=== PATIENT | female | born 1960 | race African-American/Black ===

== ENCOUNTER 2018-02-16 10:49 | Emergency (ER) | payer OTHER ==
[~2018-02-16] VITALS: Ht 162.6 cm; Wt 83.5 kg
--- NOTE | 2018-02-16 14:04 | CT SCAN REPORT ---
EXAMINATION: CT HEAD WITHOUT CONTRAST CLINICAL INFORMATION: Headache. Assess for intracranial hemorrhage or mass. COMPARISON: None. TECHNIQUE: Contiguous axial imaging was performed from the skull base to vertex without intravenous administration of contrast. DLP: 622.71 mGy-cm FINDINGS: There is no evidence of acute intracranial hemorrhage or territorial infarction. No abnormal mass effect or midline shift is seen. Zelaya to white matter differentiation is well preserved. No extra-axial fluid collections are identified. The ventricles are normal in size. There is no abnormal attenuation within the brain parenchyma. The osseous structures and soft tissues are normal. The visualized mastoid air cells and paranasal sinuses are well aerated. IMPRESSION: 1. There are no acute bleeds or infarcts. No masses are demonstrated. 2. The visualized paranasal sinuses and mastoid air cells are well-aerated.
[2018-02-16] MEDS ORDERED: LINZESS290 MC1 PO (14:30)
[2018-02-16] MEDS ORDERED: PREDNISONE20 M1 PO (14:30)
[2018-02-16] MEDS ORDERED: LEVOTHYROXINE137 MCG PO (14:31)
[2018-02-16] MEDS ORDERED: BUPROPION XL300 M1 PO (14:31)
[2018-02-16] MEDS ORDERED: GABAPENTIN300 M2 PO (14:32)
[2018-02-16] MEDS ORDERED: TIZANIDINE HCL4 M1 PO (14:32)
[2018-02-16] MEDS ORDERED: TOPIRAMATE100 M2 PO (14:32)
--- NOTE | 2018-02-16 16:12 | ED HEADACHE COMPLAINT ---
History of Present Illness General Chief Complaint: Headache Stated Complaint: HX OF MIGRANES/BEASLEY Source: patient Exam Limitations: no limitations Vital Signs & Intake/Output Vital Signs & Intake/Output ED Intake and Output 02/17 0000 02/16 1200 Intake Total Output Total Balance Patient 184 lb Weight Weight Reported by Patient Measurement Method Allergies Coded Allergies: Penicillins (Intermediate, HIVES 02/16/18) hazelnut (Intermediate, HEADACHES 02/16/18) pineapple (Intermediate, HIVES 02/16/18) Reconcile Medications Bupropion HCl (Bupropion XL) 300 MG TAB.ER.24H 1 TAB PO QAM MENTAL HEALTH ( Reported) Gabapentin 300 MG CAPSULE 1 CAP PO TID UNKNOWN (Reported) Levothyroxine Sodium 137 MCG TABLET 1 TAB PO DAILY AC THYROID (Reported) Linaclotide (Linzess) 290 MCG CAPSULE 1 CAP PO DAILY GI (Reported) Prednisone 20 MG TABLET 1 TAB PO BID PRN STEROID (Reported) Tizanidine HCl 4 MG TABLET 1 TAB PO BID MUSCLE (Reported) Topiramate 100 MG TABLET 1 TAB PO BID MENTAL HEALTH (Reported) Triage Note: PT TO ED WITH C/O MIGRAINE HEADACHE, HX OF MIGRAINES, ON TOPOMAX, GETS BOTOX SHOTS AND PREDNISONE FOR MIGRAINES. HELENE POMPA IN TO EVAL IN TRIAGE. Triage Nurses Notes Reviewed? yes Onset: Gradual Duration: week(s): (2), changing over time, continues in ED Timing: recent history Quality/Severity: pressure Severity Numbers: 7 Head Injury Location: frontal No Modifying Factors: none LMP (ages 10-50): post menopausal, unknown HPI: Pt is a 56 y/o F PMHx migraine headaches, hypothyroidism presenting with a headache x 2-3 weeks. Pt states it has waxed and waned but today it is at its worst. Pain is located behind her eyes and at the frontal aspect. Pt admits to photo/phonophobia and nausea. Pt takes topomax, gabapentin BID and is curently taking 20 mg of prednisone QD. Pt also attempted sumatriptan x3 last week without relief. She has previously been treated with Botox. Her neurologist called and is requesting a CTA to rule out aneurysm. Pt denies vomiting, weakness, dizziness, vision changes. Patient reports that she has had similar headaches in the past that have required ER visits. She states that she gets headaches like this about twice a year. This is not the worse headache of her life there is no head trauma fever or neck stiffness changes in vision or focal weakness slurred speech or any other symptoms. (Stuart Almonte) Past History Travel History Traveled to [place] past 21 day No Medical History Any Pertinent Medical History? 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 No (Stuart Almonte) Review of Systems Review of Systems Constitutional: Denies: see HPI. Eyes: Reports: see HPI. Ears, Nose, Throat, Mouth: Reports: no symptoms. Respiratory: Denies: see HPI. Cardiovascular: Denies: see HPI. Gastrointestinal/Abdominal: Reports: no symptoms. Genitourinary: Reports: no symptoms. Musculoskeletal: Reports: no symptoms. Skin: Reports: no symptoms. Neurological/Psychological: Reports: see HPI. Hematologic/Endocrine: Reports: no symptoms. Endocrine: Reports: no symptoms. Immunologic/Allergic: Reports: no symptoms. All Other Systems: Reviewed and Negative (Stuart Almonte) Physical Exam Physical Exam General Appearance: well developed/nourished, no apparent distress, alert, awake , moderate distress Head: atraumatic, normal appearance Eyes: Bilateral: normal appearance, PERRL, EOMI. Ears, Nose, Throat: normal pharynx, normal ENT inspection, hearing grossly normal Neck: normal inspection, supple, full range of motion Respiratory: normal breath sounds, chest non-tender, no respiratory distress, lungs clear Cardiovascular: regular rate/rhythm Gastrointestinal: normal bowel sounds, soft, non-tender, no organomegaly Back: normal inspection, normal range of motion Extremities: normal inspection, normal range of motion, no edema Psychiatric: awake, alert, oriented x 3 Cranial Nerves: normal hearing, normal speech, PERRL, CN II-XII intact Coordination/Gait: normal finger to nose, normal gait Motor/Sensory: no motor/sensory deficits Skin: intact, normal color, warm/dry Core Measures Sepsis Present: No Sepsis Focused Exam Completed? Yes (Stuart Almonte) Progress Differential Diagnosis: carotid dissection, cluster BEASLEY, IC mass/tumor, intracranial Hem., migraine BEASLEY, musculoskeletal pain, sinusitis, SSS thrombosis, subarach. Hem., tension BEASLEY, temporal arteritis, TMJ syndrome, viral cephalgia Plan of Care: Orders Procedure Date/time Status COMPREHENSIVE METABOLIC PANEL 02/16 1526 Complete CBC WITHOUT DIFFERENTIAL 02/16 1526 Complete Laboratory Tests 02/16/18 1655: Anion Gap 6, Estimated GFR 51 L, BUN/Creatinine Ratio 10.0, Glucose 103 H, Calcium 9.3, Total Bilirubin 0.2, AST 13 L, ALT 28, Alkaline Phosphatase 50, Total Protein 6.4, Albumin 3.6, Globulin 2.8, Albumin/Globulin Ratio 1.3, CBC w Diff NO MAN DIFF REQ, RBC 4.01 L, MCV 91.9, MCH 30.3, MCHC 32.9 L, RDW 15.0 H , MPV 8.0, Gran % 73.0, Lymphocytes % 22.3, Monocytes % 4.1, Eosinophils % 0.2, Basophils % 0.4, Absolute Granulocytes 5.2, Absolute Lymphocytes 1.6, Absolute Monocytes 0.3, Absolute Eosinophils 0, Absolute Basophils 0 Patient is here for evaluation of a headache. She does have a previous history of headaches and has been treated with multiple medications including Botox. She is on prophylaxis meds and is followed by neurology. This headache is similar to previous severe headaches that have required ER visits in the past. This is not the worst headache of her life onset has been gradual. She is neurologically intact. Patient is medicated with IV fluids IV Tylenol Reglan and Benadryl. Spoke with the patient's neurologist is requesting a CTA. Labs CTA ordered. Patient is feeling much better after medications. Her blood work overall is unremarkable. Head CT and CTA are negative. Patient did not want to wait for her paperwork and left the emergency department. She was aware of the negative results she is feeling better alert and oriented 3 steady gait. Diagnostic Imaging: Viewed by Me: CT Scan. Discussed w/RAD: CT Scan. Radiology Impression: PATIENT: TOMASZ SEN PRESENT AGE: 58 PATIENT ACCOUNT NO: [id number] : 62 LOCATION: [facility] ORDERING PHYSICIAN: Stuart POMPA SERVICE DATE: 02/16/18-1528 EXAM TYPE: CAT - CT HEAD ANGIOGRAM; CT NECK ANGIOGRAM EXAMINATION: CT ANGIOGRAM NECK WITH CONTRAST CT ANGIOGRAM BRAIN WITH CONTRAST CLINICAL INFORMATION: Headaches for 2 to 3 weeks. Aneurysm. COMPARISON: Head CT performed earlier the same day. TECHNIQUE: Test bolus sequences followed by intravenous administration 95 mL of Optiray 320. Helical imaging was performed in the axial plane from the thoracic inlet to the skull vertex. Delayed postcontrast imaging of the head was also performed. The data was processed at the ultrasound technologist workstation for generation of MIP sequences. Angled MIPs and volume rendered reformatted images were also generated at an offline 3D workstation. Stenoses are assessed in accordance with NASCET criteria unless otherwise indicated. DLP: 1874 mGy-cm FINDINGS: Postcontrast head CT: There is no intracranial hemorrhage, large acute infarction, or mass lesion. The ventricles are normal in size and configuration without evidence of hydrocephalus. The major dural venous sinuses appear normal. The visualized paranasal sinuses and mastoid air cells are clear. Neck CTA: There is a three-vessel, left-sided aortic arch. There is no significant stenosis of the great vessel origins. The bilateral common carotid arteries appear normal. The bilateral internal carotid arteries appear normal without significant stenosis. The vertebral artery origins and cervical segments appear normal without significant stenosis. Head CTA: No intracranial aneurysm is seen. The intracranial internal carotid arteries appear normal. The anterior cerebral artery, anterior communicating artery, and middle cerebral arteries appear normal. The intradural vertebral arteries and basilar artery appear normal. The posterior cerebral arteries appear normal. Non-vascular findings: The visualized lung apices are clear. The cervical spine demonstrates multilevel degenerative changes. No mass or fluid collection is identified within the neck. IMPRESSION: CT head: - No intracranial hemorrhage or large acute infarction. CTA neck: - No hemodynamically significant stenosis in the major arteries of the neck. CTA head : - No large vessel occlusion or significant stenosis within the intracranial circulation. DICTATED BY: Jake Lopez MD DATE/TIME DICTATED:02/16/181915 CEMETERY WARDEN:TRINA DATE/TIME TRANSCRIBED:02/16/181915 CONFIDENTIAL, DO NOT COPY WITHOUT APPROPRIATE AUTHORIZATION. <Electronically signed in Other Vendor System> SIGNED BY: Jake Lopez MD 02/16/181928, PATIENT: TOMASZ SEN PRESENT AGE: 58 PATIENT ACCOUNT NO: [id number] : 62 LOCATION: [facility] ORDERING PHYSICIAN: Stuart POMPA SERVICE DATE: 02/16/18 EXAM TYPE: CAT - CT HEAD WO IV CONTRAST EXAMINATION: CT HEAD WITHOUT CONTRAST CLINICAL INFORMATION: Headache. Assess for intracranial hemorrhage or mass. COMPARISON: None. TECHNIQUE: Contiguous axial imaging was performed from the skull base to vertex without intravenous administration of contrast. DLP: 622.71 mGy-cm FINDINGS: There is no evidence of acute intracranial hemorrhage or territorial infarction. No abnormal mass effect or midline shift is seen. Zelaya to white matter differentiation is well preserved. No extra-axial fluid collections are identified. The ventricles are normal in size. There is no abnormal attenuation within the brain parenchyma. The osseous structures and soft tissues are normal. The visualized mastoid air cells and paranasal sinuses are well aerated. IMPRESSION: 1. There are no acute bleeds or infarcts. No masses are demonstrated. 2. The visualized paranasal sinuses and mastoid air cells are well-aerated. DICTATED BY: Richard Monsivais MD DATE/TIME DICTATED:02/16/181357 CEMETERY WARDEN:TRINA DATE/TIME TRANSCRIBED:1357 CONFIDENTIAL, DO NOT COPY WITHOUT APPROPRIATE AUTHORIZATION. < Electronically signed in Other Vendor System> SIGNED BY: Richard Monsivais MD [id number] (Stuart Almonte) Departure Departure Disposition: HOME OR SELF CARE Condition: Stable Clinical Impression Primary Impression: Headache Qualifiers: Headache type: unspecified Headache chronicity pattern: acute headache Intractability: not intractable Qualified Code: R51 - Headache Referrals: Mann Bowers MD Unknown (PCP/Family) Additional Instructions: Continue to take YOUr at home headache medications as directed. Make a follow- up with Dr. Bowers NEUROLOgist as soon as possible monitor symptoms return with any concerns. Please go over all results of today's visit with your primary care doctor. Contact your primary care doctor to let them know you were here in the emergency room. There may be nonspecific findings which may not be related to your visit today here in the emergency room but may require further evaluation and chronic monitoring by your primary care doctor. If you had a laceration today the chance of foreign body always remains. You should follow-up with your primary care doctor for recheck in 3-5 days for a wound check. If you had an x-ray done there is a chance that a fracture could have been missed on initial read and you should follow-up with your primary care doctor for repeat x-rays if symptoms persist. If your blood pressure was elevated here in the emergency room please have rechecked by [facility] primary care doctor within the next 48. If you were prescribed a narcotic here in the emergency room or any type of controlled substances you're not allowed to drive while taking this medication or operate any type of heavy machinery. Narcotics can make you feel lightheaded dizziness nausea and can cause constipation. You may need to cherry picker operator a stool softener. Thank you for choosing [facility] emergency room. Please return to the emergency room immediately if you have any other concerns worsening of symptoms. Departure Forms: Customer Survey General Discharge Information (Delfino POMPA,Stuart) PA/MOTION PICTURE DIRECTOR Co-Sign Statement Statement: ED Attending supervision documentation- I saw and evaluated the patient. I have also reviewed all the pertinent lab results and diagnostic results. I agree with the findings and the plan of care as documented in the PA's/MOTION PICTURE DIRECTOR's documentation. x I have reviewed the ED Record and agree with the PA's/MOTION PICTURE DIRECTOR's documentation. [] Additions or exceptions (if any) to the PAs/MOTION PICTURE DIRECTOR's note and plan are summarized below: [] (Obed CHENEY,Alvino)
[2018-02-16 17:12] LABS: ABSOLUTE BASOPHIL COUNT 0 /CUMM (0.0-0.2); ABSOLUTE EOSINOPHIL COUNT 0 /CUMM (0.0-0.7); ABSOLUTE GRANULOCYTE CT 5.2 /CUMM (1.4-6.5); ABSOLUTE LYMPH COUNT 1.6 /CUMM (1.2-3.4); ABSOLUTE MONOCYTE COUNT 0.3 /CUMM (0.10-0.60); BASOPHIL % 0.4 % (0.0-2.0); EOSINOPHIL % 0.2 % (0-5); HEMATOCRIT 36.8 % (37-47); MEAN CORPUSCULAR HGB 30.3 PG (27.0-31.0); MEAN CORPUSCULAR HGB CONC 32.9 G/DL (33.0-37.0); MEAN CORPUSCULAR VOLUME 91.9 FL (81.0-99.0); PLATELET COUNT 220 /CUMM (130-400); RED BLOOD CELL CT 4.01 /CUMM (4.20-5.40); WHITE BLOOD CELL COUNT 7.2 /CUMM (4.8-10.8)
--- NOTE | 2018-02-16 19:29 | CT SCAN REPORT ---
EXAMINATION: CT ANGIOGRAM NECK WITH CONTRAST CT ANGIOGRAM BRAIN WITH CONTRAST CLINICAL INFORMATION: Headaches for 2 to 3 weeks. Aneurysm. COMPARISON: Head CT performed earlier the same day. TECHNIQUE: Test bolus sequences followed by intravenous administration 95 mL of Optiray 320. Helical imaging was performed in the axial plane from the thoracic inlet to the skull vertex. Delayed postcontrast imaging of the head was also performed. The data was processed at the medical technologist generalist workstation for generation of MIP sequences. Angled MIPs and volume rendered reformatted images were also generated at an offline 3D workstation. Stenoses are assessed in accordance with NASCET criteria unless otherwise indicated. DLP: 1874 mGy-cm FINDINGS: Postcontrast head CT: There is no intracranial hemorrhage, large acute infarction, or mass lesion. The ventricles are normal in size and configuration without evidence of hydrocephalus. The major dural venous sinuses appear normal. The visualized paranasal sinuses and mastoid air cells are clear. Neck CTA: There is a three-vessel, left-sided aortic arch. There is no significant stenosis of the great vessel origins. The bilateral common carotid arteries appear normal. The bilateral internal carotid arteries appear normal without significant stenosis. The vertebral artery origins and cervical segments appear normal without significant stenosis. Head CTA: No intracranial aneurysm is seen. The intracranial internal carotid arteries appear normal. The anterior cerebral artery, anterior communicating artery, and middle cerebral arteries appear normal. The intradural vertebral arteries and basilar artery appear normal. The posterior cerebral arteries appear normal. Non-vascular findings: The visualized lung apices are clear. The cervical spine demonstrates multilevel degenerative changes. No mass or fluid collection is identified within the neck. IMPRESSION: CT head: - No intracranial hemorrhage or large acute infarction. CTA neck: - No hemodynamically significant stenosis in the major arteries of the neck. CTA head: - No large vessel occlusion or significant stenosis within the intracranial circulation.
[2018-02-16 19:30] VITALS: BP 121/77
== END 2018-02-16 19:31 ==
LOC: ERH 10:49
PROVIDERS: Physician Assistant Medical
DX: R51 Headache (principal); H53.149 Visual discomfort, unspecified; R11.0 Nausea
CPT/HCPCS: 96374; 96375; J0131; J1200; J2765